=== PATIENT | male | born 1950 | race Caucasian/White ===

== ENCOUNTER 2017-06-17 10:05 | Day surgery (SDC) | payer SELFPAY ==
[2017-06-10 11:21] VITALS: BP 123/77; PULSE 56; RESP 16; TEMP 36.6; O2SAT 98; BMI 25.0
--- NOTE | 2017-06-10 11:25 | SDCEKG_ITS ---
Test Reason : Blood Pressure : / mmHG Vent. Rate : 055 BPM Atrial Rate : 055 BPM P-R Int : 198 ms QRS Dur : 144 ms QT Int : 452 ms P-R-T Axes : 062 -72 043 degrees QTc Int : 432 ms Sinus bradycardia with marked sinus arrhythmia Non-specific intra-ventricular conduction block Abnormal ECG Confirmed by MARIA DE JESUS WISE, MAGDALENA ([id number]), television news video editor ASHLEY CONNOLLY ([id number]) on 06/12/2017 12:52:32 PM Referred By: Aldo Graham Confirmed By:MAGDALENA PRETTY MD
[2017-06-10 11:48] LABS: Hematocrit 44.3 % (40-54); Hemoglobin 14.9 g/dl (13.0-16.5); Mean Corp Hgb Conc 33.6 g/gl (32-36); Mean Corpuscular Hgb 31.9 pg (27.0-32.0); Mean Corpuscular Volume 94.9 fL (80-94); Mean Platelet Vol. 9.5 fl (6.2-12.0); Platelet Count 156 K/mm3 (150-450); RBC Distribution Width CV 12.9 % (11.6-14.6); RBC Distribution Width SD 43.5 fl (35.1-43.9); Red Blood Count 4.67 M/mm3 (4.6-6.2)
[2017-06-10 11:52] LABS: Scan Indicated on CBC? Y/N NO
[2017-06-10 12:13] LABS: BUN 22 mg/dL (7-18); Creatinine, Serum 1.08 mg/dL (0.70-1.30); EST Glomerular Filtration Rate 72 mL/min (>60); Estimated Creatinine Clearance 67.59 ml/min; Glucose 96 mg/dL (74-106); Prothrombin Time (Protime)PT. 13.1 SECONDS (11.7-14.9)
[2017-06-10 12:14] LABS: AST(SGOT) 24 U/L (15-37); Alanine Aminotransfer ALT/SGPT 23 U/L (16-61); Albumin, Serum 3.4 g/dL (3.2-5.0); Alkaline Phosphatase 84 U/L (45-117); Anion Gap 8 (5-15); BUN/Creat Ratio 20.4 RATIO (10-20); Bilirubin, Direct 0.15 mg/dL (0.00-0.30); Calcium,Total 8.5 mg/dL (8.5-10.1); Chloride 103 mmol/L (98-107); Est Glom Filt Rate - Afr Amer 87 mL/min (>60); Globulin 3.9 g/dL (2.2-4.2); Partial Thromboplast Time 30.9 Seconds (24.1-36.2); Protein, Total 7.3 g/dL (6.4-8.2); Sodium Level 140 mmol/L (136-145)
[2017-06-17] VITALS (11 sets, daily range): BP systolic 91–131; BP diastolic 48–87; PULSE 52–72; RESP 14–18; TEMP 36.1–36.8; O2SAT 96–100; BMI 25.0
--- NOTE | 2017-06-17 | PROS_PTH ---
PATIENT: JAMI WAGNER [place] [facility] [place][id number] AGE/SX: 67/M ROOM: RE06/17/[address]: Dr. Aldo Graham MD : 1950 BED: DIS: 06/18/2017 SPEC #: [id number] RECD: 06/17/17 14:30 STATUS: VIVI MAICO #: [id number] ANNI: 06/17/17 00:[address]: Aldo Graham DEPT: SURGICAL PATHOLOGY RECD BY: Vikash Balderrama ENTERED: 06/17/17 14:30 SP TYPE: TURP OTHR DR: Dr. Deng Venegas, DO Tissues: Prostate, NOS Procedures: Surgery Specimen Level IV HEADER OPERATION: Cysto, TUR prostate, Olymp[employer] PRE-OP DIAGNOSIS: BPH with obstruction TISSUE SUBMITTED: Prostate tissue MICROSCOPIC DIAGNOSIS Prostate tissue, TUR: Benign prostatic hyperplasia, glandular and stromal type. Focal acute and chronic inflammation. SJ:tayler 06/18/17 MICROSCOPIC DESCRIPTION Slides are reviewed. GROSS DESCRIPTION Received is one container labeled with the patient's name and designated prostate tissue. The specimen consists of multiple irregular fragments of pink-chavez, rubbery, soft tissue that in aggregate weigh 6.4 gm and measure in aggregate 4 x 4 x 0.8 cm. The entire specimen is submitted in five cassettes. / CAREY:tayler 06/17/17 TC:5 CPT: 13371
[2017-06-17] MEDS: Cefazolin 2 GM in 0.9% Normal Saline 100 ML IV (11:33)
--- NOTE | 2017-06-17 12:09 | PCM.OPRPT ---
Report of Operation Date of Procedure: 06/17/17 Pre-Operative Diagnosis: BPH with prostatic regrowth and obstruction Post-Operative Diagnosis: Same Surgery/Procedure Performed:: Transurethral resection of prostatic regrowth Description of Surgical Findings:: 67-year-old male taken back to the operating room at the smooth induction of general anesthesia he was placed in dorsal lithotomy position went into the bladder with a 26 Serbian continuous flow resectoscope the external sphincter was fairly tight but was able to get the resectoscope through this and a very high bladder neck and had obstructive tissue at the 6 o'clock position then was switched over to the resectoscope and resected this obstructive tissue I was extremely careful because the length of the prostate was quite short he had prior laser surgery a lot of the roof and then lasered that had been lasered very close to the sphincter he did require a long time to regain control of his bladder identify the sphincter the sphincter was not resected or cut I only resected the regrowth of tissue into the prostate causing bowel bowel ball valve obstruction I was very conservative and coming back really did not have any verumontanum left from his prior procedure really no identifiable verumontanum and therefore had to come to identify the sphincter and then just cut right back to that but again is very conservative left some tissue at the 6 o'clock position to make sure that he still maintains good control of bladder but resected open the obstructive tissue at the bladder neck. Ellik out all the chips patient anesthetic was reversed and he will he went back to the floor with continuous bladder irrigation. Type of Anesthesia:: General Drains: 22 fr - Admit VTE Documentation VTE Present on Admission: No VTE Mechan Device Prophylaxis: SCD's VTE Pharm Prophylaxis ordered?: No Reason prophylaxis not ordered:: Treatment Not Indicated
[2017-06-17] MEDS: Docusate Sodium 100 MG Capsule PO (21:37)
[2017-06-17] MEDS: 0.9% Normal Saline 1,000 ML 125 ML IV (22:42)
[2017-06-18 03:22] VITALS: BP 93/55; PULSE 54; RESP 16; TEMP 36.5; O2SAT 96
[2017-06-18] MEDS: 0.9% Normal Saline 1,000 ML 125 ML IV (06:39)
--- NOTE | 2017-06-18 07:22 | PCM.DC.URO ---
Discharge Diet: Light diet - advance as tolerated Discharge Activity: May Drive May shower in (days): 1 Call your doctor if your incision/area has: Continuous Slow Oozing, Sudden Increased Bleeding, Increased Pain/ Swelling, Increased Redness, Foul Smelling Discharge, Swelling at the incision site Call your doctor if you observe: Fever of 101 or Higher, Inability to urinate, Uncontrolled pain Suture Line Care: Avoid Pulling/Pushing, Avoid Pinching/Bending Instructions: Transurethral Resection of the Prostate (TURP): Home Recovery Allergies/Adverse Reactions: Allergies No Known Allergies Allergy (Verified 06/10/17 11:05) Medications to take at Discharge Ascorbic Acid [Vitamin C] 1,000 mg PO DAILY 06/10/17 Grape Seed Extract [Meganatural-Bp] 200 mg PO DAILY 06/10/17 Magnesium/Zinc 4 tab PO DAILY 06/10/17 Metoprolol Tartrate [Lopressor (beta yi)] 50 mg PO DAILY PRN 06/10/17 Pygem/Saw [place] 2 cap PO BID 06/10/17 Ultra Joint Complex 1 cap PO QHS 06/10/17 Ultra Joint Complex 2 cap PO DAILY 06/10/17 Ciprofloxacin [Cipro] 500 mg PO BID #10 tab 06/18/17 The following prescriptions were given: Ciprofloxacin [Cipro] 500 mg PO BID #10 tab Primary Care Physician: Deng Venegas MD [Primary Care Provider] - Please Follow Up With: Aldo Graham MD When: July 02 at 9:00 am, for post op check.
[2017-06-18 09:00] VITALS: BP 91/55; PULSE 54; RESP 16; TEMP 36.7; O2SAT 99
[2017-06-18] MEDS: Pantoprazole Sodium 40 MG Tablet PO (09:02)
[2017-06-18] MEDS: Docusate Sodium 100 MG Capsule PO (09:02)
--- NOTE | 2017-06-18 10:13 | CASEMGMT ---
Social Work Note Pt is listed as self-pay so this worker met with pt to discuss financial assistance resources. Pt states that he has paid for the [facility] Package Plan. He denied needing any other financial resources. Pt denied additional needs or concerns. Plan: Return Home Mariposa Maguire [employer] SELECT[employer], [employer] WORKER
--- NOTE | 2017-06-27 10:24 | PCM.HP.STD ---
History of Present Illness Date of Admission: 06/17/17 Chief Complaint: 67-year-old male with prostatic regrowth in the prostatic channel The patient is a 67 year old male with a history of TURP in the past was has significant regrowth of the and the channel causing obstruction and discomfort and obstruction presents to the hospital for TURP Past Medical History Allergies No Known Allergies Allergy (Verified 06/10/17 11:05) Home Medications: Ambulatory Orders Medication Instructions Recorded Ascorbic Acid [Vitamin C] 1,000 mg PO DAILY 06/10/17 Grape Seed Extract [Meganatural-Bp] 200 mg PO DAILY 06/10/17 Magnesium/Zinc 4 tab PO DAILY 06/10/17 Metoprolol Tartrate [Lopressor 50 mg PO DAILY PRN 06/10/17 (beta yi)] Pygem/Saw [place] 2 cap PO BID 06/10/17 Ultra Joint Complex 1 cap PO QHS 06/10/17 Ultra Joint Complex 2 cap PO DAILY 06/10/17 Ciprofloxacin [Cipro] 500 mg PO BID #10 tab 06/18/17 Surgical History: herniorrhaphy, TURP Psychiatric History: No pertinent psych hx Lives: Spouse/ Significant Other Smoking Status: Never smoker Tobacco Use: Non-smoker Alcohol: None Drugs: None Review of Systems Constitutional: Denies: Chills, Fever, Weight Change HEENT: Denies: Head Aches, Sinus Congestion, Sinus Drainage Cardiovascular: Denies: Chest Pain, Palpitations Respiratory: Denies: Cough, Shortness of breath at rest, Sputum production Gastrointestinal: Denies: Abdominal Pain, Nausea, Vomiting Genitourinary: Denies: Dysuria Musculoskeletal: Denies: Joint Pain, Joint Tenderness Skin: Denies: Rash, Wounds Neurological: Denies: Numbness, Tingling, Focal weakness Psychiatric: Denies: Anxiety, Depression, Homicidal Ideations, Suicidal Ideations Hematologic/ Lymphatic: Denies: Easy Bruising, Easy Bleeding VTE Information - Inpt Only VTE Present on Admission: No VTE Mechan Device Prophylaxis: SCD's - Physical Exam General: Alert, Oriented x3, Cooperative HEENT: Atraumatic, PERRLA, EOMI, Normocephalic Neck: Supple, No JVD, Negative Carotid Bruits Lungs: Clear to auscultation, Normal air movement Cardiovascular: Regular rate, No murmurs Abdomen: Bowel Sounds Present, Soft, Non Tender Extremities: No edema, Capillary Refill Less than 3 Seconds Skin: No rashes, No breakdown Musculoskeletal: No Tenderness to Palpation of Joints or Extremities Neurological: Cranial nerves II-XII grossly intact Psych/Mental Status: Normal Affect, Appropriate Vital Signs Temp Pulse Resp BP Pulse Ox 98.0 F 54 L 16 91/55 L 99 06/18/17 09:00 06/18/17 09:00 06/18/17 09:00 06/18/17 09:00 06/18/17 09:00 Oxygen Delivery Method Room Air Weight: 79.3 kg Body Mass Index (BMI) 25.0 Assessment/Plan 67-year-old male who on cystoscopy was found to have a significant regrowth of his prostate had a TURP many years ago he will need a TURP for this regrowth. We talked about what is involved with the surgery we talked about the rare risk of incontinence and bladder control after the surgery. He did have some incontinence with his initial TURP several years ago so will be very cautious and resecting towards the sphincter.
== END 2017-06-18 13:10 | disposition home or self-care (01) ==
LOC: SDC 10:06 → AC 10:07 → MS3 10:57
PROVIDERS: Anesthesiology; Family Provider Family Medicine; PCP Family Medicine; Visit Provider Urology
PROC: (CPT 52630; principal; 2017-06-17 11:45)
DX: N40.1 Benign prostatic hyperplasia with lower urinary tract symptoms (principal); N13.8 Other obstructive and reflux uropathy
CPT/HCPCS: 52630; 80048; 80076; 85027; 85610; 85730; 88305; J7030; J7120; J2405

== ENCOUNTER 2022-07-23 15:16 | Emergency (ER) | payer OTHER, SELFPAY ==
[2022-07-23 15:17] VITALS: BP 129/77; PULSE 66; RESP 18; TEMP 36.6; O2SAT 99; BMI 26.4
--- NOTE | 2022-07-23 15:51 | EDS_ITS ---
HPI History of Present Illness Chief Complaint: Complaint Informant: patient Narrative Narrative: Presents with urinary retention symptoms. This patient has had 2 prior transurethral resections of the prostate. The last one was 4 to 5 years ago. About 2 to 3 days ago he started having a little trouble passing the urine. He is now having more trouble in getting some blood in the urine. He states he does not feel sick. No nausea vomiting. No fevers or chills. No actual dysuria. Only current medicines are metoprolol and lisinopril. No anticoagulation. Nothing makes symptoms better or worse. PFSH PFSH Home Medications Magnesium/Zinc 4 tab PO DAILY 06/10/17 [History Last Taken Unknown] Pygem/Saw [place] 2 cap PO BID 06/10/17 [History Last Taken Unknown] Ultra Joint Complex 1 cap PO QHS 06/10/17 [History Last Taken Unknown] Ultra Joint Complex 2 cap PO DAILY 06/10/17 [History Last Taken Unknown] ascorbic acid (vitamin C) 1,000 mg tablet (Vitamin C) 1,000 mg PO DAILY 06/10/17 [History Last Taken Unknown] grape seed extract 150 mg tablet,extended release (MegaNatural-BP) 200 mg PO DAILY 06/10/17 [History Last Taken Unknown] metoprolol tartrate 50 mg tablet 50 mg PO DAILY PRN heart issues/ thumping 06/10/17 [History Last Taken Unknown] ciprofloxacin HCl 500 mg tablet 500 mg PO BID #10 tabs 06/18/17 [Rx Last Taken Unknown] ciprofloxacin HCl 500 mg tablet 500 mg PO BID #14 TABLETS 07/23/22 [Rx Last Taken Unknown] Allergy/AdvReac Type Severity Reaction Status Date / Time No Known Allergies Allergy Verified 07/23/22 15:16 Surgical History H/O transurethral resection of prostate Social History Smoking Status: Never smoker ROS ROS ED ROS Narrative A complete review of systems was performed and is negative except as documented in the history of present illness. Some specific details below. Constitutional: No recent fevers or chills. Does not feel sick. No malaise. EYE: No visual complaints or pain. ENT: No difficulty swallowing. CV: No chest pain or palpitations. Respiratory: No dyspnea. No hemoptysis. No difficulty taking breaths. GI: Discomfort in suprapubic area but otherwise no pain. No nausea vomiting or diarrhea. : See history of present illness Musculoskeletal: No recent trauma. No pains. Skin: No rash. Nondiaphoretic. Neuro: No weakness or numbness. Endocrine: No polyuria or polydipsia. EXAM Physical Exam Narrative Exam Narrative: CONSTITUTIONAL: Patient is nontoxic in appearance. The patient looks comfortable. HEENT: No notable trauma. Mucous membranes moist. No sinus tenderness. No indication of pain with swallowing. EYES: No conjunctival injection. No proptosis. CARDIOVASCULAR: Regular rate. Regular rhythm. No notable murmur. No JVD. RESPIRATORY: No respiratory distress. Breathing is unlabored. No wheezes. GASTROINTESTINAL: Not distended but there is fullness in the suprapubic area. Bowel sounds are normal. No tenderness. No guarding. No rebound. No palpable mass. No bruit. GENITOURINARY: Fullness over the bladder but no CVA tenderness. MUSCULOSKELETAL: Atraumatic. No peripheral edema. No cord. No tenderness along the deep venous system. No asymmetry. NEUROLOGICAL: Patient is alert and appropriate. No focal deficit noted. SKIN: No noted rashes. No diaphoresis. PSYCHIATRIC: Patient is calm. Mood is appropriate. Const Vital Signs: 07/23/22 15:17 07/23/22 17:54 Temperature 97.8 F Temperature Source Temporal Pulse Rate 66 55 L Respiratory Rate 18 16 Blood Pressure 129/77 H 126/83 H Blood Pressure Mean 94 97 Pulse Ox 99 98 Oxygen Delivery Method Room Air Room Air [facility] Narrative Medical decision making narrative: Patient CBC shows no acute abnormality. Patient's electrolytes showed minimal elevation in the BUN but preserved creatinine. Urinalysis grade 100 red cells but no white cells. Patient had a coud? placed with good release of urine. Initially had clots. But he is clearing now. It is really not even showing blood. Patient's symptoms are resolved and he feels very decompressed. Patient also states that he has felt some pressure like he has prostatitis. He has had this before. We talked about doing rectal exam but he states he is tender from placing the catheter. I agree that this will likely produce a tender prostate I think we will treat him because of his history and symptoms. He will follow-up with his urologist this week. I do not think any imaging or CT or ultrasound needs to be done. We have gotten good clinical decompression of the bladder. He has a benign abdomen now. He has no nausea vomiting fevers chills or white count. Lab Data Attestation: I reviewed the patient's lab results. Labs: Laboratory Results - last 24 hr 07/23/22 07/23/22 07/23/22 15:58 15:58 16:55 WBC 9.5 RBC 4.79 Hgb 15.0 Hct 45.0 MCV 93.9 MCH 31.3 MCHC 33.3 RDW Std Deviation 45.1 H RDW Coeff of Arsh 13.0 Plt Count 258 MPV 8.5 Immature Gran % (Auto) 0.300 Neut % (Auto) 73.0 H Lymph % (Auto) 15.8 L [place] % (Auto) 9.2 Eos % (Auto) 0.9 Baso % (Auto) 0.8 Absolute Neuts (auto) 6.9 Absolute Lymphs (auto) 1.50 Nucleated RBC % 0 Sodium 139 Potassium 3.9 Chloride 106 Carbon Dioxide 26.0 Anion Gap 7 BUN 22 H Creatinine 1.14 Estim Creat Clear Calc 61.47 Est GFR (MDRD) Af Amer 81 Est GFR (MDRD) Non-Af 67 BUN/Creatinine Ratio 19.3 Glucose 90 Calcium 9.2 Urine Color [place] Urine Clarity Cloudy Urine pH 7.0 Ur Specific [place] 1.010 Urine Protein 100 H Urine Glucose (UA) Normal Urine Ketones Negative Urine Occult Blood 250 H Urine Nitrite Negative Urine Bilirubin Negative Urine Urobilinogen Normal Ur Leukocyte Esterase Negative Urine RBC > 100 SEEN Urine WBC 0 SEEN Ur Squamous Epith Cells 0 SEEN Urine Bacteria 0 SEEN Urine Mucus 0 SEEN Discharge Plan Triage Chief Complaint: Complaint ED Provider: Jose Eduardo Candelario Dx/Rx/DC Orders Clinical Impression: Acute urinary retention, Hematuria, Prostatitis Instructions: ED Prostatitis, ED Urinary Retention, Male Prescriptions: New ciprofloxacin HCl [ciprofloxacin HCl] 500 mg tablet 500 mg PO BID Qty: 14 0RF No Action ascorbic acid (vitamin C) [Vitamin C] 1,000 MG tablet 1,000 mg PO DAILY metoprolol tartrate 50 MG tablet 50 mg PO DAILY PRN (Reason: heart issues/ thumping ) Label Comments: pt states only takes at home when he feels heart thumping- used PRN for this patient. grape seed extract [MegaNatural-BP] 150 MG tablet extended release 200 mg PO DAILY Magnesium/Zinc 4 tab PO DAILY Pygem/Saw [place] 2 cap PO BID Ultra Joint Complex 1 cap PO QHS Ultra Joint Complex 2 cap PO DAILY ciprofloxacin HCl 500 MG tablet 500 mg PO BID Qty: 10 0RF Primary Care Provider: Deng Venegas Referrals: Aldo Graham MD [Med Staff - Active Staff] - As soon as possible Deng Venegas DO [Primary Care Provider] - Disposition Disposition: Home, Self Care
[2022-07-23 16:13] LABS: Absolute Neutrophil Count 6.9 X10^3/uL (2.0-7.7); Basophil# 0.08 X10^3/uL; Basophil% 0.8 % (0-1); Eosinophil# 0.09 X10^3/uL; Eosinophils% 0.9 % (0-5); Lymphocyte % 15.8 % (19-41); Mean Corp Hgb Conc 33.3 g/dL (32-36); Mean Corpuscular Hgb 31.3 pg (27.0-32.0); Mean Corpuscular Volume 93.9 fL (80-94); Mean Platelet Vol. 8.5 fl (6.2-12.0); Monocyte# 0.88 X10^3/uL; Monocyte% 9.2 % (0-10); NRBC Flagged by Analyzer 0 % (0-5); Neutrophil # 6.94 X10^3/uL (2.7-7.7); Platelet Count 258 K/mm3 (150-450); RBC Distribution Width SD 45.1 fl (35.1-43.9); Red Blood Count 4.79 M/mm3 (4.6-6.2); White Blood Count 9.5 K/mm3 (4.4-11.0)
[2022-07-23 16:32] LABS: Anion Gap 7 (5-15); BUN 22 mg/dL (7-18); BUN/Creat Ratio 19.3 RATIO (10-20); Calcium,Total 9.2 mg/dL (8.5-10.1); Chloride 106 mmol/L (98-107); Creatinine, Serum 1.14 mg/dL (0.70-1.30); EST Glomerular Filtration Rate 67 mL/min (>60); Est Glom Filt Rate - Afr Amer 81 mL/min (>60); Estimated Creatinine Clearance 61.47 ml/min; Glucose 90 mg/dL (74-106); Potassium 3.9 mmol/L (3.5-5.1); Sodium Level 139 mmol/L (136-145)
[2022-07-23] MEDS: Lidocaine Jelly 2% 20 ML Syringe (URO-JET) 1 APPLIC TOPICAL (16:42)
[2022-07-23 17:04] LABS: Bacteria 0 SEEN /hpf (None Seen); Mucous, Urine 0 SEEN /hpf (<or=2+); Squamous Epithelial Cells - UA 0 SEEN /hpf (0-5); White Blood Cells 0 SEEN /hpf (0-5)
[2022-07-23 17:23] LABS: Color, Urine Amber (Yellow); Glucose, Dipstick Normal (Normal); Ketone-Dipstick Negative (Negative); Leukocyte Esterase-Dipstick Negative /ul (Negative); Nitrite-Dipstick Negative (Negative); Occult Blood-Urine 250 /ul (Negative); Protein-Dipstick 100 mg/dl (Negative); Urine Bilirubin Dipstick Negative (Negative); Urine Clarity Cloudy (Clear); Urine Urobilinogen Normal (Normal)
[2022-07-23 17:43] LABS: Red Blood Cells-Urine > 100 SEEN /hpf (0-5)
[2022-07-23 17:54] VITALS: BP 126/83; PULSE 55; RESP 16; O2SAT 98
[2022-07-23] MEDS: Ciprofloxacin 500 MG Tablet PO (18:22)
[2022-07-23 18:31] VITALS: BP 138/88; PULSE 56; RESP 16; O2SAT 96
== END 2022-07-23 18:34 | disposition home or self-care (01) ==
PROVIDERS: Emergency Provider Emergency Medicine; PCP Family Medicine; Visit Provider Emergency Medicine
DX: R33.9 Retention of urine, unspecified (principal); R31.9 Hematuria, unspecified; N41.9 Inflammatory disease of prostate, unspecified
CPT/HCPCS: 51702; 80048; 81001; 85025; 99284; A4216

== ENCOUNTER → 2022-12-12 | Outpatient (CLI) | payer SELFPAY ==
[2022-12-14 08:07] LABS: PSA, Free 0.22 ng/mL; PSA, Free % 19.3 % (.)
== END | disposition home or self-care (01) ==
PROVIDERS: PCP Family Medicine; Referring Provider Urology; Visit Provider Urology
DX: R97.20 Elevated prostate specific antigen [PSA] (principal)
CPT/HCPCS: 36415; 84153; 84154